=== PATIENT | female | born 1965 | race Caucasian/White ===

== ENCOUNTER → 2019-05-30 | Outpatient (CLI) | payer OTHER ==
--- NOTE | 2019-05-30 16:12 | RAD ---
EXAM: 1. ULTRASOUND-GUIDED CORE BIOPSY LEFT BREAST WITH CLIP PLACEMENT. 2. POSTCLIP DIAGNOSTIC LEFT MAMMOGRAPHY. HISTORY: Left breast mass. Ultrasound-guided biopsy is requested. FINDINGS: The procedure along with its risks and benefits were explained to the patient. She agreed to proceed. A timeout procedure was performed. Sonographic evaluation of the left breast redemonstrates the lesion of concern. A 3 mm hypoechoic mass at the 2:00 position 8 cm from the nipple is redemonstrated. This appears more cystic on real-time imaging. This was discussed with the patient who prefers biopsy. The overlying skin was sterilely prepped and infiltrated with 1% lidocaine for local anesthesia. Under ultrasound guidance, 2 core needle specimens of the target lesion were obtained using a 14-gauge biopsy device. These were submitted in formalin. The lesion decompressed and was no longer identifiable after biopsy, consistent with a cyst. A postbiopsy clip was placed at its former site under ultrasound guidance. Pressure was held to hemostasis. There were no immediate complications. Full-field digital mammographic views of the left breast were obtained in CC and MLO projections and interpreted on a dedicated workstation. They demonstrate the clip in correspondence with the site of the target lesion. IMPRESSION: 1. Successful ultrasound-guided left breast biopsy with clip placement. The lesion decompressed and vanished, consistent with a cyst. 2. The postbiopsy clip corresponds with the side of the target lesion. Electronically signed by: Scar Barfield MD (05/30/2019 4:09 PM) [facility]
--- NOTE | 2019-06-01 17:07 | PATHOLOGY ---
[facility] Accession Number: [id number] . 01 Material submitted: . breast - LEFT BREAST MASS, 2:00, 8CMFN. Modifiers: left, 2:00 . 01 Clinical history: . Left breast mass 2:00 8 cm from nipple, 3.5 mm . 02 Diagnosis: Breast tissue, left breast mass 2:00, needle biopsy: - Segment of benign fibroadipose tissue identified. . (JP:mm; 06/01/2019) [facility] 06/01/2019 1419 Local . 02 Comment: There is no evidence of malignancy. Please correlate with mammographic findings. . (JPM:mm; 06/01/2019) . 02 Electronically signed: . Harsh Mejia MD, Pathologist NPI- [id number] . 01 Gross description: . The specimen is received in formalin, labeled "Chitra Montague, left breast". Received is a single needle core of fibrofatty tissue measuring 0.6 cm in length by 0.2 cm in diameter. The specimen is submitted entirely in cassette A1. The cold ischemic time is less than 1 minute. The total formalin fixation time is 32 hours and 45 minutes. ([facility]; 05/31/2019) QAC/QAC 05/31/2019 1558 Local . 02 Pathologist provided ICD-10: N63.20 . 02 CPT . 765552 Specimen Comment: A courtesy copy of this report has been sent to [phone], [phone] Specimen Comment: [phone] Specimen Comment: Report sent to / DR CHRISTIAN Performed at: [address], [place], [place] [id number] MD Chele Eraoz MD Phone: [phone] Performed at: [address] [id number] MD Harsh Mejia MD Phone: [phone]
== END | disposition home or self-care (01) ==
LOC: US 13:54
PROVIDERS: ATTEND Family Medicine
DX: N63.20 Unspecified lump in the left breast, unspecified quadrant (principal)
CPT/HCPCS: 19083; 77065; 88305; C1713; 76942